=== PATIENT | female | born 1985 | race Two or more races ===

== ENCOUNTER 2023-09-29 04:17 | Emergency (ER) | payer MEDICAID ==
[~2023-09-29] VITALS: Ht 157.5 cm; Wt 98.5 kg
[2023-09-29 04:59] VITALS: TEMP 98.3
[2023-09-29 05:00] VITALS: BP 133/88; PULSE 83; RESP 18
[2023-09-29] MEDS: KETOROLAC TROMETH 30 MG/ML 1ML VIAL IM ONE (05:39)
[2023-09-29 05:54] VITALS: O2SAT 96
== END 2023-09-29 06:08 | disposition home or self-care (01) ==
LOC: ER 04:17
DX: M79.18 Myalgia, other site (principal)
CPT/HCPCS: 96372; 99283; J1885